=== PATIENT | female | born 2000 | race Caucasian/White ===

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

== ENCOUNTER → 2022-02-05 13:42 | Outpatient (BNVA) | payer OTHER, SELFPAY | PROVIDERS: Visit Provider Advanced Practice Midwife | DX: Z39.2 Encounter for routine postpartum follow-up (principal); Z30.011 Encounter for initial prescription of contraceptive pills | CPT/HCPCS: 99212 ==

== ENCOUNTER 2023-07-02 10:00 | Outpatient (AMB) | payer OTHER, SELFPAY ==
--- NOTE | 2023-07-02 10:36 | AM.OFFWIN_ITS ---
Intake Vital Signs 07/02/23 10:37 Height 5 ft 8 in Weight 138 lb BMI 21.0 BP 116/70 Blood Pressure Location Lt brachial Position Sitting Pulse 93 Pulse Source Pulse Oximeter Temp 97.7 F Temp Source Temporal Artery Scan Pulse Oximetry (%) 95 Oxygen Delivery Method Room Air Intake Visit Reasons: EP Cough, fever Intake Note: pt is here today for cough fever started 2 weeks ago Patient Tobacco Use Status: Never used Tobacco Allergies No Known Allergies Allergy (Verified 07/02/23 10:40) Do you need a note to return to daycare/school/sports/work: Yes HPI HPI Comments History of Present Illness Details She presents with cold symptoms Ongoing 1/5 weeks Started as congestion, body aches, fever/chills and fatigue + congestion but cough worse Painful cough She states she has no phlegm with cough No remaining fevers She was taking cough medicine PFSH Family History Maternal Grandmother No problems noted. Social History Household Members: Family Both parents involved: Yes Caregiver staying overnight: No Housing: Apartment Are you a primary career orientation teacher to a significant other at home: No Do you presently have visiting nurse or other home services: No 75 years or older and lives alone: No Alcohol intake: current Alcohol intake frequency: holidays/special occasions only Patient Tobacco Use Status: Never used Tobacco Substance Use Type: Marijuana Agree to transfusion: Yes service: No Current occupational status: employed Current occupation: Works in restaurant Current occupational exposures/hazards: No Gender identity: Female Female Reproductive History Menstrual Age of Menarche: 16 Review of Systems Const Reports body aches, Reports chills, Reports fatigue, Reports fever(s) and Reports other (All fever/body aches/chills have resolved) ENT Denies otalgia, Reports nasal discharge, Denies sore throat and Denies throat swelling Card Denies chest pain and Denies dyspnea Resp Reports chest congestion, Reports cough, Reports pain with cough and Denies dyspnea Endo Reports fatigue Aller/Immun Denies throat swelling Physical Exam Vital Signs: Last Vital Signs Temp 97.7 F 07/02/23 10:37 Pulse 93 07/02/23 10:37 BP 116/70 03/27/24 10:37 Pulse Ox 95 07/02/23 10:37 Oxygen Delivery Method Room Air 07/02/23 10:37 BMI result Body Mass Index 21.0 General: Non-toxic, NAD. Speaking full sentences. Skin: Warm dry throughout Eye: EOMI HENT: Airway patent. Uvula midline. No pharyngeal erythema or edema. No TECH BRAZER TESTER. Bilateral canals clear. TM non-erythematous, non-bulging. No TM perforation or hemotympanum noted. + rhinorrhea Respiratory: CTA bilaterally. No wheezes, rales or rhonchi. + dry cough Cardiac: RRR. No murmur MSK: Full ROM extremities. Neurology: A/O. No aphasia or facial droop. Gait without abnormality Psych: Good mood and affect Assessment & Plan Assessment & Plan (1) Viral upper respiratory illness: Code(s): J06.9 - Acute upper respiratory infection, unspecified Plan: Patient seen and evaluated. Most likely had flu 1.5 weeks ago and lingering cough Lungs CTA, no concern PNA Tessalon for cough Increase fluids/rest Work note given Patient gave verbal understanding and had no additional questions or concerns at time of discharge All questions answered Medications: New benzonatate 200 mg PO BID-TID PRN 20 caps 0RF cough Coding Level of Care Code Est Pt Level 3 (53133) Diagnoses Viral upper respiratory illness J06.9
[2023-07-02 10:37] VITALS: BP 116/70; PULSE 93; TEMP 36.5; O2SAT 95; BMI 21.0
== END 2023-07-02 11:08 | disposition home or self-care (01) ==
PROVIDERS: Visit Provider Physician Assistant
DX: J06.9 Acute upper respiratory infection, unspecified (principal)
CPT/HCPCS: 99213

== ENCOUNTER 2023-07-14 11:59 | Outpatient (AMB) | payer OTHER, SELFPAY ==
--- NOTE | 2023-07-14 11:57 | AM.OFFWIN_ITS ---
Intake Vital Signs 07/14/23 12:01 Height 5 ft 8 in Weight 144 lb 2 oz BMI 21.9 BP 110/72 Blood Pressure Location Rt brachial Position Sitting Pulse 96 Pulse Source Pulse Oximeter Temp 98.5 F Temp Source Oral Pulse Oximetry (%) 100 Oxygen Delivery Method Room Air Intake Visit Reasons: EP pain urinating (lobby) Intake Note: Pt presents to the office today for c/o urinary frequency, urgency, and pain with urination. Patient Tobacco Use Status: Never used Tobacco Allergies No Known Allergies Allergy (Verified 07/14/23 12:03) HPI HPI Comments History of Present Illness Details Patient presents to the walk-in today for sick visit Complaining of dysuria, urinary frequency and urinary urgency Denies abdominal pain, back pain, fevers, hematuria, nausea, vomiting, diarrhea LMP beginning of last month, 1 sexual partner. No concern for sexually transmitted infections. [facility] Medical History (Updated 07/14/23 @ 12:50 by Betty Blackman APRN, TELECOMMUNICATIONS SUPPORT) BCP ( control pills) initiation care and examination Encounter for care after hospital delivery Maternal care for suspected poor growth, third trimester, single gestation Encounter for screening for malformation using ultrasound test positive Supervision of normal first teen in first trimester Supervision of normal in second trimester Family History Maternal Grandmother No problems noted. Social History Household Members: Family Both parents involved: Yes Caregiver staying overnight: No Housing: Apartment Are you a primary toddler caregiver to a significant other at home: No Do you presently have visiting nurse or other home services: No 75 years or older and lives alone: No Alcohol intake: current Alcohol intake frequency: holidays/special occasions only Patient Tobacco Use Status: Never used Tobacco Substance Use Type: Marijuana Agree to transfusion: Yes service: No Current occupational status: employed Current occupation: Works in restaurant Current occupational exposures/hazards: No Gender identity: Female Female Reproductive History Menstrual Age of Menarche: 16 Review of Systems Const All systems reviewed & are unremarkable except as noted in HPI and below Physical Exam Vital Signs: Last Vital Signs Temp 98.5 F 07/14/23 12:01 Pulse 96 07/14/23 12:01 BP 110/72 07/14/23 12:01 Pulse Ox 100 07/14/23 12:01 Oxygen Delivery Method Room Air 07/14/23 12:01 BMI result Body Mass Index 21.9 General: awake, alert, oriented. Answers questions appropriately. Fully engaged in examination. Skin: warm, dry, intact HEENT: Normocephalic. Hearing intact. Cardiac: External chest normal in appearance. Respiratory: No cough, audible wheezing or stridor. Abdomen: without gross distension. Soft, nontender. No guarding. No CVA tenderness MS: No obvious swelling or deformities. Neurological: Oriented to person, place, time and situation. Thought process intact. No gait abnormalities appreciated. Psychiatric: Appropriate mood and affect. Good judgment and insight. Results AMB Urinalysis, Automated UA Leukoctes 70 Wong/uL Last Edit by Sejal Doan CMA on 07/14/23 12:11 UA Nitrite Positive Last Edit by Sejal Doan CMA on 07/14/23 12:11 UA Urobilinogen 0.2 mg/dL Last Edit by Sejal Doan CMA on 07/14/23 12:11 UA Protein 15 mg/dL Last Edit by Sejal Doan CMA on 07/14/23 12:11 UA pH 6.0 Last Edit by Sejal Doan CMA on 07/14/23 12:11 UA Blood 25 Leo/uL Last Edit by Sejal Doan CMA on 07/14/23 12:11 UA Specific [place] 1.020 Last Edit by Sejal Doan CMA on 07/14/23 12:11 UA Ketone Negative Last Edit by Sejal Doan CMA on 07/14/23 12:11 UA Bilirubin 0 mg/dL Last Edit by Sejal Doan CMA on 07/14/23 12:11 UA Glucose 0 mg/dL Last Edit by Sejal Doan CMA on 07/14/23 12:11 AMB Test Urine AMB Test Urine Negative Last Edit by Bonita Flores MA on 12:45 Results Reviewed Results Reviewed: Laboratory Last Values Urine pH (Auto) 6.0 07/14/23 12:10 Specific [place] (Auto) 1.020 07/14/23 12:10 Urine Protein (Auto) 15 mg/dL 07/14/23 12:10 Glucose (UA)(Auto) 0 mg/dL 07/14/23 12:10 Urine Ketones (Auto) Negative 07/14/23 12:10 Urine Blood (Auto) 25 Leo/uL 07/14/23 12:10 Urine Nitrite (Auto) Positive 07/14/23 12:10 Urine Bilirubin (Auto) 0 mg/dL 07/14/23 12:10 Urine Urobilinogen (Auto) 0.2 mg/dL 07/14/23 12:10 Leukocyte Esterase (Auto) 70 Wong/uL 07/14/23 12:10 Tst Clinic Negative 07/14/23 12:44 Urinalysis reviewed HCG negative Assessment & Plan Assessment & Plan (1) UTI (urinary tract infection): Code(s): N39.0 - Urinary tract infection, site not specified Plan Urinalysis reviewed HCG negative Macrobid 100 mg p.o. q.12 hours x5 days. Take with food Pyridium 100 mg p.o. 3 times daily as needed Increase fluid intake. Follow up with PCP or return to clinic for new fever, back pain or if symptoms persist. Orders: Orders AMB Urinalysis Automated Today Jaswant Hankins MD Z13.9 - Encounter for screening, unspecified AMB HCG Urine Test Today Betty Blackman APRN, TELECOMMUNICATIONS SUPPORT R30.0 - Dysuria Medications: New nitrofurantoin monohyd/m-cryst 100 mg (Macrobid) must administer with a meal/food 100 mg PO Q12H 10 caps 0RF 5 days Betty Blackman APRN, TELECOMMUNICATIONS SUPPORT phenazopyridine (Pyridium) 100 mg PO TID 9 tabs 0RF Betty Blackman APRN, TELECOMMUNICATIONS SUPPORT Coding Level of Care Code Est Pt Level 3 (14905) Diagnoses UTI (urinary tract infection) N39.0
[2023-07-14 12:01] VITALS: BP 110/72; PULSE 96; TEMP 36.9; O2SAT 100; BMI 21.9
== END 2023-07-14 13:10 | disposition home or self-care (01) ==
PROVIDERS: Visit Provider Registered Nurse Emergency
DX: R30.0 Dysuria (principal)
CPT/HCPCS: 81003; 99213